=== PATIENT | female | born 2000 | race Asian ===

== ENCOUNTER 2022-09-30 09:46 | Day surgery (SDC) | payer OTHER, SELFPAY ==
[2022-09-19 13:57] VITALS: BMI 30.5
[2022-09-20 11:40] VITALS: BMI 29.2
--- NOTE | 2022-09-27 13:06 | P.PNAN_ITS ---
Anes - Initial Pre Proc Eval Procedure: Operation Date: 09/30/22 13:00 Proposed Procedures p Diagnostic Colonoscopy - Ramon Reyes MD Date/Time: 09/27/22 13:06 Surgeon: Ramon Reyes MD Pre Op Diagnosis: Hematochezia Patient Data Age: 22 Gender: F Height: 1.52 m Weight: 68 kg Allergies Allergy/AdvReac Type Severity Reaction Status Date / Time No Known Allergies Allergy Verified 09/30/22 11:51 Home Medications Medication Instructions Recorded Confirmed Type dextroamphetamine-amphetamine ER 15 mg PO DAILY #30 caps 09/25/22 09/30/22 Rx 15 mg 24hr capsule,extend release (Adderall XR) Patient hx anesthesia problems: none Family hx anesthesia problems: none Results Review: All pre-operative results and documents have been reviewed as part of the pre- operative evaluation. [facility] Past Medical History Medical History (Updated 09/27/22 @ 13:06 by Efrain Hidalgo DO) ADD (attention deficit disorder) Allergies Anxiety Family history of Crohn's disease Migraine Surgical History Surgical History [place] teeth removed 2017 Family History Family History Mother Crohn's disease Grandparent Diabetes mellitus Hypertension Heart disease Cerebrovascular accident Social History Social History Smoking status: Never smoker Alcohol intake: never Alcohol use details: 3 drinks/month Substance use: never Substance use type: does not use Lack of Transportation: No Lack of Food: Never True Current Housing: I Have Housing Concerned About Future Housing: No Difficulty Paying Gas/Electric Bills: No Difficulty Paying for Meds: No Currently Unemployed: No Education: High School Diploma/GED Difficulty w/ Childcare or Family Care: No Living arrangements: with family Spiritual care concerns: No Anes - Eval Final PreProcedure Day of Procedure 09/27/22 13:06 Patient weight: overweight Heart: regular rate and rhythm Lungs: clear to auscultation Airway: Mallampati scale class II Neurological: alert and oriented Last oral intake: >/= 8 hours ASA classification: II Emergent: no Anesthetic plan: proceed Anesthesia type and monitoring: general GIVS and standard monitoring Results Review: All pre-operative results and documents have been reviewed as part of the pre- operative evaluation. Informed Consent: The patient's anesthetic plan and its attendant risks and benefits were discussed with the patient/family/POA. Questions were solicited and answers provided to the satisfaction of the patient/family/POA.
[2022-09-30 11:45] VITALS: BP 108/69; PULSE 65; RESP 18; TEMP 36.7; O2SAT 100
[2022-09-30] MEDS: LACTATED RINGERS 1,000 ML 150 ML IV CONT (12:00)
--- NOTE | 2022-09-30 12:27 | WPDHPUPDATE1 ---
History and Physical Update Update Date/Time: 09/30/22 12:27 History and Physical has been reviewed, including an updated exam of the patient. There are NO changes in the patient's condition. Risks, benefits, and alternatives have been discussed and questions answered. Patient agrees to proceed with procedure.
[2022-09-30 12:48] VITALS: BP 92/62; PULSE 74; RESP 14; O2SAT 99
[2022-09-30 12:58] VITALS: BP 96/63; PULSE 76; RESP 16; O2SAT 100
--- NOTE | 2022-09-30 13:05 | WPDANESPN ---
Anes - Prog Note Post-Op Date/Time: 09/30/22 13:05 Cardiovascular status: normal Respiratory status: normal Airway patency: baseline Mental status: baseline Post-Op hydration status: normal Vital Signs: Last Vital Signs Temp 36.7 C 09/30/22 11:45 Pulse 65 09/30/22 11:45 Resp 18 09/30/22 11:45 BP 108/69 09/30/22 11:45 Pulse Ox 100 09/30/22 11:45 O2 Del Method Room Air 09/30/22 11:45 Pain Score (VAS): 0 I/O: Intake & Output 09/29/22 09/30/22 09/30/22 23:59 07:59 15:59 Intake Total 300 Balance 300 Post-procedural complaints: none Patient Feedback: Patient satisfied with anesthetic care. Other Findings: Patient vital signs back to baseline. Patient denies nausea and vomiting. Patient's pain under control. Patient OK for discharge.
[2022-09-30 13:08] VITALS: BP 89/51; PULSE 48; RESP 16; O2SAT 99
--- NOTE | 2022-09-30 13:25 | SUR.PHASEII ---
PT AWAKE AND ALERT. DENIES PAIN. EATING AND DRINKING. MOTHER AT BEDSIDE.
== END 2022-09-30 13:40 | disposition home or self-care (01) ==
PROVIDERS: PCP Family Medicine; Visit Provider Internal Medicine Gastroenterology
PROC: 0DJD8ZZ Inspection of Lower Intestinal Tract, Via Natural or Artificial Opening Endoscopic (ICD-10-PCS; CPT 45378; principal; 2022-09-30 13:00)
DX: K92.1 Melena (principal)
CPT/HCPCS: 45378

== ENCOUNTER 2025-01-27 15:28 | Outpatient (CLI) | payer OTHER, SELFPAY ==
--- NOTE | ~2025-01-27 | MR_ITS ---
MRI of the brain Clinical History: Headache Technique: Axial and sagittal T1-weighted images were acquired. These were followed by axial T2-weigh natali, diffusion weighted, gradient, and FLAIR images. Findings: No abnormal signal seen in the brain parenchyma. No acute infarct, intracranial hemorrhage, or mass lesion. Ventricles and subarachnoid spaces are unremarkable. Orbits are unremarkable. Paranasal sinuses and m astoid air cells are clear. Major intracranial flow voids are intact. Sagittal midline structures are intact. IMPRESSION: Normal exam. Reviewed, dictated and finalized at location M. IMPRESSION: Normal exam.
--- OUTSIDE RECORDS SUMMARY | 2025-01-27 15:35 | XMS_ITS | Patient Health Record ---
Author Organization [facility] Address [address] [place] [address] Care Team Providers Care Extractor Operator Name Role Phone Gaviota Mcqueen Unavailable [phone] DidierCookie english Unavailable [phone] Allergies No Known Allergies Reason For Referral No Information Medications Medication SIG (Take, Route, Frequency, Duration) Notes Start Date End Date Status Adderall XR 15 MG Oral for 30 Days Active Trintellix 5 MG 1 tablet Orally Once a day for 30 days Active Rizatriptan Benzoate 10 MG Oral for 2 Days Active Social History Tobacco Use: Social History Observation Description Date Details (start date - stop date) Never Smoker NA - NA Sex Assigned At : Social History Observation Description Sex Assigned At Female Tobacco Control (Standard) Question Answer Notes Tobacco use: Nonsmoker AUDIT-C (Standard) Question Answer Notes Did you have a drink containing alcohol in the p ast year? No Problems Problem Type SNOMED Code ICD Code Onset Dates Problem Status W/U Status Risk Notes Problem Generalized anxiety disorder (36524352) Generalized anxiety disorder (F41.1) Active confirmed Problem Premenstrual tension syndrome (24278892) PMDD (premenstrual dysphoric disorder) (F32.81) Active confirmed Vital Signs Heart Rate 77 /min 04/30/2024 Height-cm 152.4 cm 04/30/2024 Blood pressure diastolic 80 mm Hg 04/30/2024 Weight-kg 73.21 kg 04/30/2024 Height 60 in 04/30/2024 Blood pressure systolic 117 mm Hg 04/30/2024 Weight 161.4 lbs 04/30/2024 BMI 31.52 kg/m2 04/30/2024 Encounters Encounter Location Date Provider Diagnosis [facility] [employer] [place] [address] [place] [address] 04/30/2024 Gaviota Kurilla PMDD (premenstrual dysphoric disorder) F32.81 [facility] [place] [address] [place] [address] 05/11/2024 Cookie Hinderliter Generalized anxiety disorder F41.1 and PMDD (premenstrual dysphoric disorder) F32.81 [facility] [address] [place] [address] 05/31/2024 Gaviota Kurilla PMDD (premenstrual dysphoric disorder) F32.81 [facility] [place] [address] [place] [address] 06/10/2024 Cookie Hinderliter Generalized anxiety disorder F41.1 and PMDD (premenstrual dysphoric disorder) F32.81 [facility] [place] [address] [place] [address] 07/12/2024 Cookie Hinderliter PMDD (premenstrual dysphoric disorder) F32.81 and Generalized anxiety disorder F41.1 [facility] [address] [place] [address] 08/17/2024 Gaviota Kurilla PMDD (premenstrual dysphoric disorder) F32.81 [facility] [address] [place] [address] 05/14/2024 Gaviota Kurilla Generalized anxiety disorder F41.1 [facility] [address] [place] [address] 05/25/2024 Gaviota Kurilla [facility] [address] [place] [address] 04/30/2024 Gaviota Kurilla Assessments Encounter Date Diagnosis (ICD Code) Assessment Notes Treatment Notes Treatment Clinical Notes Section Notes 05/14/2024 Generalized anxiety disorder (ICD-10 - F41.1) Electronic Prior Authorization was requested for Trintellix 5 MG Tablet. Provider can order medication once approval received. 04/30/2024 PMDD (premenstrual dysphoric disorder) (ICD-10 - F32.81) Electronic Prior Authorization was requested for Trintellix 5 MG Tablet. Provider can order medication once approval received. 05/11/2024 Generalized anxiety disorder (ICD-10 - F41.1) Preferred name: Kelly Pronouns: she/her Marital Status: Single Support System: parents, friends Highest Level of Education: Master's in biomedical engineering Employment Status: Just recently graduated, will start applying for jobs soon Financial Concerns: Denied History: Denied Legal History: Denied Family History of MH/KAREEN: None reported Physical Medical Conditions: ADHD, migraines Spiritual Beliefs: Denied Suicidal Ideation/Self Harm: Denied Homicidal Ideation: Denied Access to Means (firearms, stockpiled medication, etc.): Denied Chief Complaint: PMDD symptoms, lots of anxiety. Anxiety: difficulty controlling worry, feeling like something bad will happen and sense of dread. Racing thoughts. Some ruminating thoughts. Racing heart, nausea, migraines get worse, some sweating, some dizziness. Noted having fleeting irritability. What if thoughts and catastrophizing . Depression: Crying, noted that the week/week and a half prior to starting menstrual cycle she will feel fatigued no matter how much sleep she gets, feels down, less interest in doing things, increased anxiety. Noted relief when period starts. Anger/Aggressio n: Denied Obsessions/Comp ulsions: Ruminating thoughts. Denied compulsions Marjorie: Denied Psychosis: Denied Sleep: Sometimes trouble staying asleep though noted that she is usually able to fall back asleep quickly. Noted that she can fall asleep if she has done a relaxing activity however being on her phone will keep her awake longer. Noted very rare nightmares. Average of 8 hours of sleep a night. Appetite: Normal. 3 meals a day. Trauma: Denied Substance Use (type, last use, amount, frequency, withdrawal symptoms): Denied Gambling/Other Addictive Behaviors: Denied ADLs (Hygiene, Chores, Cooking, Shopping): Noted that tasks can be a little more difficult week before period but she is able to complete them. Interests/Skill s/Hobbies: Reading, watching TV, arts and crafts, building Lego. Strengths: mindful and insightful Goal(s) for Therapy: skills and coping mechanisms. 1. Anxiety: - Patient reports generalized anxiety with racing thoughts, a sense of dread, and physical symptoms such as racing heart, nausea, sweating, lightheadedness , and irritability. - Plan: a. Encourage the patient to practice challenging negative thoughts and reframing them with positive possibilities. b. Teach the patient square breathing technique to regulate breathing during anxiety episodes. c. Schedule monthly therapy sessions to monitor progress and provide additional support. 2. Premenstrual Dysphoric Disorder (PMDD): - Patient experiences increased anxiety, depressive symptoms, fatigue, and decreased interest in activities approximately 1.5 weeks before the onset of menstruation, with symptoms subsiding when the period starts. - Plan: a. Encourage the patient to track their menstrual cycle and symptoms to better understand the pattern and severity of PMDD. b. Discuss the possibility of consulting a academic advisement director for further evaluation and management. c. Integrate coping mechanisms for anxiety and depressive symptoms into the therapy sessions. 3. Sleep disturbances: - Patient reports occasional difficulty falling or staying asleep, waking up multiple times during the night, and using reading as a coping mechanism. - Plan: a. Encourage the patient to maintain a consistent sleep schedule and practice good sleep hygiene. b. Monitor sleep patterns during therapy sessions and address any concerns or changes. 4. ADHD and migraines: - Patient has a history of ADHD and migraines but did not report any current concerns during the session. - Plan: a. Monitor the patient's ADHD and migraine symptoms during therapy sessions and address any concerns or changes. b. Encourage the patient to continue following up with their primary care doctor for management of these conditions. 5. Interests and strengths: - Patient enjoys reading, TV, arts and crafts, and building LEGOs. - Patient identifies self-awareness as a strength. - Plan: a. Encourage the patient to engage in hobbies and interests as a form of self-care and stress relief. b. Utilize the patient's self-awareness to facilitate progress in therapy and develop coping mechanisms. Overall, the patient will attend monthly therapy sessions to address anxiety and PMDD symptoms, learn coping mechanisms, and monitor progress. The patient will be encouraged to practice the techniques discussed during the session and bring any concerns or questions to future appointments. 05/11/2024 PMDD (premenstrual dysphoric disorder) (ICD-10 - F32.81) Preferred name: Kelly Pronouns: she/her Marital Status: Single Support System: parents, friends Highest Level of Education: Master's in biomedical engineering Employment Status: Just recently graduated, will start applying for jobs soon Financial Concerns: Denied History: Denied Legal History: Denied Family History of MH/KAREEN: None reported Physical Medical Conditions: ADHD, migraines Spiritual Beliefs: Denied Suicidal Ideation/Self Harm: Denied Homicidal Ideation: Denied Access to Means (firearms, stockpiled medication, etc.): Denied Chief Complaint: PMDD symptoms, lots of anxiety. Anxiety: difficulty controlling worry, feeling like something bad will happen and sense of dread. Racing thoughts. Some ruminating thoughts. Racing heart, nausea, migraines get worse, some sweating, some dizziness. Noted having fleeting irritability. What if thoughts and catastrophizing . Depression: Crying, noted that the week/week and a half prior to starting menstrual cycle she will feel fatigued no matter how much sleep she gets, feels down, less interest in doing things, increased anxiety. Noted relief when period starts. Anger/Aggressio n: Denied Obsessions/Comp ulsions: Ruminating thoughts. Denied compulsions Marjorie: Denied Psychosis: Denied Sleep: Sometimes trouble staying asleep though noted that she is usually able to fall back asleep quickly. Noted that she can fall asleep if she has done a relaxing activity however being on her phone will keep her awake longer. Noted very rare nightmares. Average of 8 hours of sleep a night. Appetite: Normal. 3 meals a day. Trauma: Denied Substance Use (type, last use, amount, frequency, withdrawal symptoms): Denied Gambling/Other Addictive Behaviors: Denied ADLs (Hygiene, Chores, Cooking, Shopping): Noted that tasks can be a little more difficult week before period but she is able to complete them. Interests/Skill s/Hobbies: Reading, watching TV, arts and crafts, building Lego. Strengths: mindful and insightful Goal(s) for Therapy: skills and coping mechanisms. 1. Anxiety: - Patient reports generalized anxiety with racing thoughts, a sense of dread, and physical symptoms such as racing heart, nausea, sweating, lightheadedness , and irritability. - Plan: a. Encourage the patient to practice challenging negative thoughts and reframing them with positive possibilities. b. Teach the patient square breathing technique to regulate breathing during anxiety episodes. c. Schedule monthly therapy sessions to monitor progress and provide additional support. 2. Premenstrual Dysphoric Disorder (PMDD): - Patient experiences increased anxiety, depressive symptoms, fatigue, and decreased interest in activities approximately 1.5 weeks before the onset of menstruation, with symptoms subsiding when the period starts. - Plan: a. Encourage the patient to track their menstrual cycle and symptoms to better understand the pattern and severity of PMDD. b. Discuss the possibility of consulting a academic advisement director for further evaluation and management. c. Integrate coping mechanisms for anxiety and depressive symptoms into the therapy sessions. 3. Sleep disturbances: - Patient reports occasional difficulty falling or staying asleep, waking up multiple times during the night, and using reading as a coping mechanism. - Plan: a. Encourage the patient to maintain a consistent sleep schedule and practice good sleep hygiene. b. Monitor sleep patterns during therapy sessions and address any concerns or changes. 4. ADHD and migraines: - Patient has a history of ADHD and migraines but did not report any current concerns during the session. - Plan: a. Monitor the patient's ADHD and migraine symptoms during therapy sessions and address any concerns or changes. b. Encourage the patient to continue following up with their primary care doctor for management of these conditions. 5. Interests and strengths: - Patient enjoys reading, TV, arts and crafts, and building LEGOs. - Patient identifies self-awareness as a strength. - Plan: a. Encourage the patient to engage in hobbies and interests as a form of self-care and stress relief. b. Utilize the patient's self-awareness to facilitate progress in therapy and develop coping mechanisms. Overall, the patient will attend monthly therapy sessions to address anxiety and PMDD symptoms, learn coping mechanisms, and monitor progress. The patient will be encouraged to practice the techniques discussed during the session and bring any concerns or questions to future appointments. 05/31/2024 PMDD (premenstrual dysphoric disorder) (ICD-10 - F32.81) Common side effects to SSRI medications include headaches, dry mouth/eye, GI upset (including indigestion, nausea, diarrhea), sleeping problems (insomnia or drowsiness), decreased libido, blurred vision, dizziness. Generally, side effects will subside or lessen with time and are common during drug initiation and dose changes. If they persist please contact the office. 07/12/2024 Generalized anxiety disorder (ICD-10 - F41.1) 1. Anxiety Management - The patient has reported that their anxiety has been manageable recently, with continued practice in thought challenges leading to automatic thought correction. - Encourage the continuation of thought challenges and wahl mind techniques, especially in preparation for the upcoming interview. 2. Trichotillomani a - Progress has been noted in managing urges to pick or pluck hairs, with the patient utilizing a alex kit to keep hands busy. - Continue encouraging the use of the alex kit and other activities to keep hands occupied, along with the reinforcement of urge surfing techniques. 3. Premenstrual Dysphoric Disorder (PMDD) - The patient has observed a downward trend in intense emotions through mood tracking, with no recent concerns mentioned. - Encourage ongoing mood and symptom tracking, with progress to be monitored in future visits. 4. Physical Activity - Engagement in a couch to 5k program and daily walks has been reported by the patient. - Encourage the continuation of the couch to 5k program and daily walks to support overall mental and physical health. 5. Job Search and Career Planning - The patient has been actively applying for jobs and considering further education options, such as a PhD or Doctor of Engineering. - Support the patient in their job search and educational decision-making process, with a follow-up appointment scheduled in two months to review progress and discuss any updates. The patient may come in sooner if needed. Follow-up: - Schedule a follow-up appointment in two months to monitor the patient's progress on the discussed issues, with the option for the patient to come in sooner if needed. 07/12/2024 PMDD (premenstrual dysphoric disorder) (ICD-10 - F32.81) 1. Anxiety Management - The patient has reported that their anxiety has been manageable recently, with continued practice in thought challenges leading to automatic thought correction. - Encourage the continuation of thought challenges and wahl mind techniques, especially in preparation for the upcoming interview. 2. Trichotillomani a - Progress has been noted in managing urges to pick or pluck hairs, with the patient utilizing a alex kit to keep hands busy. - Continue encouraging the use of the alex kit and other activities to keep hands occupied, along with the reinforcement of urge surfing techniques. 3. Premenstrual Dysphoric Disorder (PMDD) - The patient has observed a downward trend in intense emotions through mood tracking, with no recent concerns mentioned. - Encourage ongoing mood and symptom tracking, with progress to be monitored in future visits. 4. Physical Activity - Engagement in a couch to 5k program and daily walks has been reported by the patient. - Encourage the continuation of the couch to 5k program and daily walks to support overall mental and physical health. 5. Job Search and Career Planning - The patient has been actively applying for jobs and considering further education options, such as a PhD or Doctor of Engineering. - Support the patient in their job search and educational decision-making process, with a follow-up appointment scheduled in two months to review progress and discuss any updates. The patient may come in sooner if needed. Follow-up: - Schedule a follow-up appointment in two months to monitor the patient's progress on the discussed issues, with the option for the patient to come in sooner if needed. 08/17/2024 PMDD (premenstrual dysphoric disorder) (ICD-10 - F32.81) Common side effects to SSRI medications include headaches, dry mouth/eye, GI upset (including indigestion, nausea, diarrhea), sleeping problems (insomnia or drowsiness), decreased libido, blurred vision, dizziness. Generally, side effects will subside or lessen with time and are common during drug initiation and dose changes. If they persist please contact the office. 1. PMDD Improved with Trintellix 5mg; PHQ9 0 today. No concerns noted. -cont Trintellix 5mg daily -cont counsleing with Cookie 06/10/2024 Generalized anxiety disorder (ICD-10 - F41.1) Assessment and Plan: 1. Anxiety - Continue practicing deep breathing exercises for at least 5 minutes daily to manage anxiety. - Encourage her to challenge negative thoughts and put them on trial to combat anxiety. - Work on developing Wahl Mind by combining logic and emotion to better understand and manage anxiety. - Monitor progress and discuss any changes in her anxiety levels during future sessions to ensure effective management. 2. Premenstrual Dysphoric Disorder (PMDD) - Assess her symptoms and changes over the past month to understand the impact of PMDD. - Encourage her to track her menstrual cycle and any associated mood changes to identify patterns. - Discuss potential treatment options, including medication and lifestyle changes, if necessary, to alleviate PMDD symptoms. 3. Skin Picking Habit - Encourage her to engage in activities that keep her hands busy, such as drawing, crocheting, or cooking, to reduce skin picking. - Suggest using fidget tools or holding objects to provide a sense of self-soothing without causing harm. - Discuss urge surfing techniques and grounding exercises to help manage the urge to pick at the skin and promote healing. Follow-up: - Schedule a follow-up appointment in 4 weeks to assess progress and make any necessary adjustments to the treatment plan. - Encourage her to reach out if she experiences any significant changes in her mental or physical health before the next appointment to ensure timely intervention. 06/10/2024 PMDD (premenstrual dysphoric disorder) (ICD-10 - F32.81) Assessment and Plan: 1. Anxiety - Continue practicing deep breathing exercises for at least 5 minutes daily to manage anxiety. - Encourage her to challenge negative thoughts and put them on trial to combat anxiety. - Work on developing Wahl Mind by combining logic and emotion to better understand and manage anxiety. - Monitor progress and discuss any changes in her anxiety levels during future sessions to ensure effective management. 2. Premenstrual Dysphoric Disorder (PMDD) - Assess her symptoms and changes over the past month to understand the impact of PMDD. - Encourage her to track her menstrual cycle and any associated mood changes to identify patterns. - Discuss potential treatment options, including medication and lifestyle changes, if necessary, to alleviate PMDD symptoms. 3. Skin Picking Habit - Encourage her to engage in activities that keep her hands busy, such as drawing, crocheting, or cooking, to reduce skin picking. - Suggest using fidget tools or holding objects to provide a sense of self-soothing without causing harm. - Discuss urge surfing techniques and grounding exercises to help manage the urge to pick at the skin and promote healing. Follow-up: - Schedule a follow-up appointment in 4 weeks to assess progress and make any necessary adjustments to the treatment plan. - Encourage her to reach out if she experiences any significant changes in her mental or physical health before the next appointment to ensure timely intervention. 04/30/2024 Other Discussed treatment options including SSRI, hormone control, TMS. Verablized she prefers to start with medication. Previously had good response and tolerated Trintellix. Start Trintellix 5mg daily for mood, anxiety. Patient educated on all medications including potential benefits, side effects, risks. Educated on proper dosing schedule and importance of compliance. Referred to counseling. 05/31/2024 Other Stable, continue Trintellix 5mg daily. Continue counseling with Cookie 08/17/2024 Other Stable, continue trintellix 5mg daily. Cont counseling with Cookie -Assessment and treatment plan reviewed with patient. -Compliance with treatment plan importance discussed. -Discussed the risks/benefits of this medication -Discussed medication side effects. -Contact office if symptoms worsen. -Discussed that it can take up to 6-8 weeks to see full therapeutic effects of psychotropic medications. -Crisis prevention hotline 988. 1. PMDD Improved with Trintellix 5mg; PHQ9 0 today. No concerns noted. -cont Trintellix 5mg daily -cont counsleing with Cookie 05/25/2024 Other Electronic Prio r Authorization was requested for Trintellix 5 MG Tablet. Provider can order medication once approval received. Plan Of Treatment Pending Test Test Name Order Date UDT 04/30/2024 Next Appt Details Provider Name:Gaviota parra, 02/15/2025 08:00:00 AM, [address], [address], [place], [address], Insurance Providers Payer Name Payer Address Payer Phone Subscriber Number Group Number Insured Name Patient Relationship to Insured Coverage Start Date Coverage End Date [facility] [address] [address] [place] [address] [id number] Kelly Rizvi Self - patient is the insured Medical (General) History Medical History History ICD Code abdominal aortic aneurysm: No atrial fibrillation: No chronic fatigue syndrome: No essential tremor: No hyperlipidemia: No hypertension: No Parkinson's disease: No restless leg syndrome: No stroke: No subdural hematoma: No type 1 diabetes mellitus: No type 2 diabetes mellitus: No vitamin B12 deficiency: No vitamin D deficiency: Yes Surgical History Surgery Date(Month/Year) widsom teeth /bilateral 2017 -2018
--- OUTSIDE RECORDS SUMMARY | 2025-01-27 15:35 | XMS_ITS | Clinical Summary ---
Author Organization [facility] Address [address] [place] [address] Care Team Providers Care Over Short And Damage Clerk Name Role Phone Unavailable Primary Care Provider Unavailabl e Source Comments [facility],non-owned Affiliates and Associated Physician Practices is amultiple site organization consisting of ambulatory clinics and hospital sitesin [place], [place], [place] and [place]. This disclosure is being madepursuant to the Care Everywhere program and may not contain all information available regarding this patient. Last updated 18.[facility] Allergies No known active allergies Medications * Be aware that medications may not be up to date on this document. Alwaysverify current medications with the patient. vortioxetine (TRINTELLIX) 10 MG tablet Take 10 mg by mouth once daily Active Active Problems Problem Noted Date Diagnosed Date Anxiety and depression 07/20/2021 Family History Medical History Relation Name Comments Diabetes - Type 2 Maternal Grandfather Heart Failure Maternal Grandfather Other Maternal Grandfather dialysi s CVA Maternal Grandmother Alzheimer's Disease Paternal Grandfather Relation Name Status Comments Brother 1 Alive Father Alive Maternal Grandfather Alive Maternal Grandmother Mother Alive Paternal Grandfather Alive Paternal Grandmother Alive Social History Tobacco Use Types Packs/Day Years Used Date Smoking Tobacco: Never Smokeless Tobacco: Never Alcohol Use Standard Drinks/Week Comments Yes 0 (1 standard drink = 0.6 oz pur e alcohol) occas Comments Unknown Sex and Gender Information Value Date Recorded Sex Assigned at Not on file Legal Sex Female 6:45 PM CHILD CARE ASSISTANT Gender Identity Not on file Sexual Orientation Not on file Last Filed Vital Signs Vital Sign Reading Time Taken Comments Blood Pressure 112/70 07/20/2021 11:31 AM CHILD CARE ASSISTANT Pulse 68 07/20/2021 11:31 AM CHILD CARE ASSISTANT Temperature 36.6 C (97.9 F) 07/20/2021 11:31 AM CHILD CARE ASSISTANT Respiratory Rate 20 07/20/2021 11:31 AM CHILD CARE ASSISTANT Oxygen Saturation - - Inhaled Oxygen Concentration - - Weight 69.4 kg (153 lb) 07/20/2021 11:31 AM CHILD CARE ASSISTANT Height 152.4 cm (5') 07/20/2021 11:31 AM CHILD CARE ASSISTANT Body Mass Index 29.88 07/20/2021 11:31 AM CHILD CARE ASSISTANT Plan of Treatment Health Maintenance Due Date Last Done Comments HIV SCREENING 2015 HPV VACCINE (1 - 3-dose series) 2015 CHLAMYDIA/GONORRHEA SCREENING 2016 HEPATITIS C SCREENING 06/14/2018 DTAP/TDAP/TD VACCINES (1 - Tdap) 2019 HEPATITIS B VACCINE (1 of 3 - 19+ 3-dose series) 2019 COVID-19 VACCINE (1 - 2023-2 5 season) 2024 DEPRESSION SCREENING 09/08/2024 INFLUENZA VACCINE (Season Ended) 2025 ZOSTER VACCINE (1 of 2) 2050 HIB VACCINE Aged Out No longer eligi ble based on patient's age to complete this topic MENINGOCOCCAL (Group B) VACC INE SHARED DECISION-MAKING Aged Out No longer eligibl e based on patient's age to complete this topic MENINGOCOCCAL GROUPS A/C/Y/W VACCINE Aged Out No longer eligible b ased on patient's age to complete this topic PNEUMOCOCCAL VACCINE Aged Out No long er eligible based on patient's age to complete this topic Insurance [facility] Address: [facility] [id number], [place] [address] CARE CARE [facility] Address: [facility] [id number] [place] [address]
== END 2025-01-27 15:29 | disposition home or self-care (01) ==
PROVIDERS: PCP Family Medicine; Visit Provider Family Medicine
DX: R51.9 Headache, unspecified (principal)
CPT/HCPCS: 70551

== ENCOUNTER 2025-07-23 08:28 | Outpatient (CLI) | payer OTHER, SELFPAY ==
--- NOTE | ~2025-07-23 | MR_ITS ---
EXAMINATION: MR cervical spine wo/w con DATE: 07/23/2025 09:42 INDICATION: Cervical radiculopathy. TECHNIQUE: Magnetic resonance imaging (MRI) of the cervical spine was performed without and with 14 mL MultiHance intravenous contrast. COMPARISON: None FINDINGS: There is hypolordosis of cervical spine. Vertebral body heights are normal. Intervertebral disc heights are normal. The spinal cord signal intensity is normal. The following disc levels are specifically discussed: C2-C3: The disc does not extend beyond the endplate margin. There is no uncovertebral joint osteoarthritis. There is no facet joint osteoarthritis. There is no neural foraminal stenosis. There is no central canal stenosis. C3-C4: The disc does not extend beyond the endplate margin. There is no uncovertebral joint osteoarthritis. There is no facet joint osteoarthritis. There is no neural foraminal stenosis. There is no central canal stenosis. C4-C5: There is a central protrusion. There is no uncovertebral joint osteoarthritis. There is no facet joint osteoarthritis. There is no neural foraminal stenosis. There is mild central canal stenosis. C5-C6: The disc is bulging and has an annular fissure. There is no uncovertebral joint osteoarthritis. There is no facet joint osteoarthritis. There is no neural foraminal stenosis. There is mild central canal stenosis. C6-C7: There is a central extrusion. There is no uncovertebral joint osteoarthritis. There is no facet joint osteoarthritis. There is no neural foraminal stenosis. There is mild central canal stenosis. C7-T1: The disc does not extend beyond the endplate margin. There is no uncovertebral joint osteoarthritis. There is mild right facet joint osteoarthritis. There is no neural foraminal stenosis. There is no central canal stenosis. IMPRESSION: 1. Mild cervical spondylosis. Reviewed, dictated and finalized at location E. [employer] SALES ASSOCIATE
== END 2025-07-23 08:29 | disposition home or self-care (01) ==
PROVIDERS: PCP Family Medicine; Visit Provider Nurse Practitioner Family
DX: M47.22 Other spondylosis with radiculopathy, cervical region (principal)
CPT/HCPCS: 72156; A9577